=== PATIENT | male | born 1985 | race Caucasian/White ===

== ENCOUNTER → 2019-10-31 11:21 | Outpatient (CLI) | payer OTHER, SELFPAY ==
--- NOTE | 2019-10-31 11:27 | XR_ITS ---
PROCEDURE: XR CHEST 2V CLINICAL HISTORY: SOB Shortness of air, swelling in legs, current smoker COMPARISON: No exams were available for comparison FINDINGS: The cardiomediastinal silhouette and pulmonary vascularity are within normal limits. There is a 7 mm nodule in the right mid upper lung zone overlying the 2nd interspace anteriorly. The remaining lungs are clear. No lobar consolidation or collapse. No acute bony abnormalities. IMPRESSION: Indeterminate 7 mm nodule right upper lobe. Consider chest CT further evaluation in this patient with positive smoking history. Dictated by: Audi Orozco MD 10/31/2019 16:08 Electronically signed by Audi Orozco MD in [place] 10/31/2019 16:08
--- NOTE | 2019-10-31 11:27 | XR_ITS ---
PROCEDURE: XR THORACIC SPINE 3V CLINICAL INDICATION: THORACIC PAIN COMPARISON: No exams were available for comparison FINDINGS: There is minimal upper thoracic curvature convex right. No acute fracture or dislocation. There are mild degenerative changes of the thoracic spine IMPRESSION: No acute findings. Dictated by: Audi Orozco MD 10/31/2019 16:06 Electronically signed by Audi Orozco MD in [place] 10/31/2019 16:06
== END ==
PROVIDERS: PCP Nurse Practitioner Family; Visit Provider Nurse Practitioner Family
DX: M54.6 Pain in thoracic spine (principal); R06.02 Shortness of breath; Z72.0 Tobacco use
CPT/HCPCS: 71046; 72072

== ENCOUNTER → 2020-12-18 15:09 | Outpatient (CLI) | payer OTHER, SELFPAY ==
[2020-12-20 09:57] LABS: Covid-19 Nasal PCR Sendout P&C POSITIVE
== END ==
PROVIDERS: PCP Internal Medicine Adolescent Medicine; Visit Provider Family Medicine
DX: U07.1 COVID-19 (principal)
CPT/HCPCS: U0004

== ENCOUNTER 2021-07-20 17:49 | Emergency (ER) | payer OTHER, SELFPAY ==
[2021-07-20 17:51] VITALS: BP 197/98; PULSE 76; RESP 19; TEMP 36.6; O2SAT 96; BMI 36.6
--- NOTE | 2021-07-20 18:00 | ECG_ITS ---
APPROVED REPORT Exam: Resting ECG HR:76 bpm ECG Measurements Heart Rate 76 AXES DE 182 P 38 QRSd 68 QRS 25 QT 352 T 39 QTc 396 Conclusion Normal sinus rhythm Normal ECG Electronically signed by : Doc Rodriguez MD 07/21/2021 18:01:44
--- NOTE | 2021-07-20 18:09 | XR_ITS ---
PROCEDURE INFORMATION: Exam: XR Chest Exam date and time: 07/20/2021 6:09 PM Age: 36 years old Clinical indication: Chest pressure; Patient HX: Chest pain and cough TECHNIQUE: Imaging protocol: XR of the chest. Views: 1 view. COMPARISON: CR XR CHEST 2V 01/01/2020 6:06 PM FINDINGS: Airway: Patent Lungs: There are multiple punctate pulmonary parenchymal calcifications, consistent with remote granulomatous organism exposure. Low lung volumes causes crowding of the bronchovascular structures. No acute interstitial or airspace disease. Pleural spaces: Unremarkable. No pleural effusion. No pneumothorax. Heart/Mediastinum: Unremarkable. No cardiomegaly. Bones/joints: No acute skeletal abnormality or aggressive osseous lesion. IMPRESSION: Negative for acute thoracic pathology.
--- NOTE | 2021-07-20 19:15 | HMH.EDGENADL ---
ED Disposition Condition on Discharge: Good - Critical Care Critical Care Time: No <DerikIldefonso - Last Filed: 07/20/21 19:51> <Iraj Oliver - Last Filed: 07/20/21 20:51> Clinical Impression: Nonspecific chest pain Disposition: Home, Self-Care Instructions: DI for Chest Pain Additional Instructions: see pcp for follow up Referrals: Doc Rodriguez MD [Primary Care Provider] - Attestation: On 07/20/21, the high probability of a clinically significant, sudden or life threatening deterioration of the following system(s) required my full and direct attention, intervention and personal management. The time I documented below is in addition to time spent performing reported procedures but includes the following listed in this critical care notation. Medical Decision Making - Medical Records Medical records reviewed: Yes: I reviewed the patient's medical records. - Miguelito Inquiry Pt receiving controlled substance: No - ECG Data Tracing #1 I reviewed this ECG and interpreted as documented below: ECG initial impression date: 07/20/21 ECG initial impression time: 18:00 ECG normal with no acute: arrhythmias, ischemia, conduction abnormalities, chamber hypertrophy Normal Sinus Rhythm: Yes <Ildefonso More - Last Filed: 07/20/21 19:51> - Lab Data Result diagrams: 07/20/21 19:44 07/20/21 19:44 <Iraj Oliver - Last Filed: 07/20/21 20:51> Vital Signs: 07/20/21 17:51 Temperature 97.9 F Temperature Source Oral Pulse Rate [Left Radial] 76 Respiratory Rate 19 Blood Pressure [Right Arm] 197/98 H Blood Pressure Mean [Right Arm] 131 Blood Pressure Source [Right Arm] Automatic Cuff Blood Pressure Position [Right Arm] Sitting 02 Sat by Pulse Oximetry 96 Oxygen Delivery Method Room Air - Lab Data Lab Results 07/20/21 19:44: WBC 8.6, RBC 5.58, Hgb 15.8, Hct 46.1, MCV 82.5, MCH 28.3, MCHC 34.2, RDW 13.4, Plt Count 239, MPV 8.9, Neut % (Auto) 64.1, Lymph % (Auto) 27.2, Smyth % (Auto) 5.2, Eos % (Auto) 1.9, Baso % (Auto) 1.6, Neut # (Auto) 5.5, Lymph # (Auto) 2.3, Smyth # (Auto) 0.4, Eos # (Auto) 0.2, Baso # (Auto) 0.1 07/20/21 19:44: Sodium 141, Potassium 4.0, Chloride 105, Carbon Dioxide 27, Anion Gap 13.0, BUN 16, Creatinine 1.10, Estimated Creat Clear 170, Estimated GFR 76, Est GFR ( Amer) 92, Glucose 107 H, Calcium 9.0, Total Bilirubin 0.3, AST 36, ALT 46, Alkaline Phosphatase 84, Troponin I < 0.01, NT-Pro-B Natriuret Pep 18.8, Total Protein 7.8, Albumin 4.2, Globulin 3.6 H, Albumin/Globulin Ratio 1.2 Orders (Tests/Meds): ORDERS Category Date Time Status Troponin I Q3H Lab 07/20/21 22:44 Ordered Troponin I Q3H Lab 07/21/21 00:15 Ordered Medical Decision Narrative: This is a 36-year-old male presenting with some left arm pain and nonspecific chest discomfort. Patient low risk for acute coronary syndrome based on heart score. PERC negative. Work-up initiated. (Ildefonso More) General Adult HPI - General Mode of Arrival: Ambulatory Limitations: No Limitations Description of Symptoms (Recalled from ER Triage Doc. by RN): c/o chest discomfort and left arm/elbow pain going into his back and soa <Ildefonso More - Last Filed: 07/20/21 19:51> - General Source of Information: Patient, Medical Record <Iraj Oliver - Last Filed: 07/20/21 20:51> - General Chief complaint: PAIN Stated complaint: tightness in chest, pain in back and L arm Time Seen by Provider: 07/20/21 17:55 - History of Present Illness HPI narrative: Is a 36-year-old male presented to the emergency department with chest discomfort. Patient has had it since he woke up this morning. States that initially started as some discomfort in his left elbow. Is dull in nature. He states that is worse when he was trying to move it. He states that it was moving up into his left shoulder and left chest. Been consistent since this morning. Seems to be made worse by movement. He has had some mi
[2021-07-20 19:54] LABS: Basophils # 0.1 K/mm3 (0-0.2); Basophils % 1.6 % (0.1-2.0); Eosinophils # 0.2 K/mm3 (0.0-0.4); Eosinophils % 1.9 % (0.1-12.0); Hematocrit 46.1 % (42.0-52.0); Hemoglobin 15.8 g/dL (14.1-18.0); Lymphocytes # 2.3 K/mm3 (0.7-4.5); Lymphocytes % 27.2 % (10-50); Mean Corpuscular HGB Conc 34.2 g/dL (31.8-35.4); Mean Corpuscular Hemoglobin 28.3 pg (27.0-31.2); Mean Corpuscular Volume 82.5 fl (80-94); Mean Platelet Volume 8.9 fl (7.4-10.4); Monocytes # 0.4 K/mm3 (0.1-1.0); Monocytes % 5.2 % (1.7-9.3); Neutrophils # 5.5 K/mm3 (1.8-7.8); Neutrophils % 64.1 % (37.0-80.0); Platelet Count 239 K/mm3 (142-424); Red Blood Count 5.58 M/mm3 (4.60-6.20); Red Cell Distribution Width 13.4 % (11.5-17.5); White Blood Count 8.6 K/mm3 (4.8-10.8)
[2021-07-20 19:56] LABS: Chloride 105 mmol/L (98-107)
[2021-07-20 19:57] LABS: Sodium 141 mmol/L (136-145)
[2021-07-20 19:59] LABS: Alanine Aminotransferase 46 U/L (12-78); Alkaline Phosphatase 84 U/L (38-126); Aspartate Amino Transferase 36 U/L (17-59); Bilirubin,Total 0.3 mg/dl (0.2-1.3); Blood Urea Nitrogen 16 mg/dl (9-20); Creatinine Clearance Estimated 170 mL/min (50-200); Estimated Glomerular Filt Rate 76 ml/min (>60); GFR (African American) 92 ML/MIN (>60)
[2021-07-20 20:00] LABS: Albumin Level 4.2 g/dl (3.5-5.0); Albumin/Globulin Ratio 1.2 (1.1-1.8); Carbon Dioxide 27 mmol/L (22.0-30.0); Globulin 3.6 g/dL (1.3-3.2); Glucose 107 mg/dl (74-100); Total Protein,Serum 7.8 g/dl (6.3-8.2)
[2021-07-20 20:09] LABS: NT Pro Brain Natriuretic Pep. 18.8 pg/mL (0-125)
[2021-07-20 20:20] LABS: Troponin I < 0.01 ng/ml (0.00-0.034)
[2021-07-20 20:54] VITALS: BP 178/88; PULSE 74; RESP 16; TEMP 36.6; O2SAT 98
== END 2021-07-20 20:55 | disposition home or self-care (01) ==
PROVIDERS: Emergency Provider Emergency Medicine; PCP Internal Medicine Adolescent Medicine
DX: R07.89 Other chest pain (principal); M79.622 Pain in left upper arm; F17.290 Nicotine dependence, other tobacco product, uncomplicated
CPT/HCPCS: 71045; 80053; 83880; 84484; 85025; 93005; 99283

== ENCOUNTER 2022-02-23 17:57 | Emergency (ER) | payer OTHER, SELFPAY ==
[2022-02-23 20:55] VITALS: BP 0/0; PULSE 0; RESP 0; TEMP -17.7; TEMP 0
== END 2022-02-23 20:56 | disposition left against medical advice (07) ==
LOC: UTC 18:01
PROVIDERS: Emergency Provider Nurse Practitioner
DX: R50.9 Fever, unspecified (principal); R09.89 Other specified symptoms and signs involving the circulatory and respiratory systems; M79.10 Myalgia, unspecified site; Z53.21 Procedure and treatment not carried out due to patient leaving prior to being seen by health care provider; Z79.51 Long term (current) use of inhaled steroids; Z79.899 Other long term (current) drug therapy; Z88.0 Allergy status to penicillin; Z88.1 Allergy status to other antibiotic agents; Z88.3 Allergy status to other anti-infective agents

== ENCOUNTER 2022-09-14 14:41 | Emergency (ER) | payer OTHER, SELFPAY ==
--- NOTE | 2022-09-14 14:43 | EXP.UTC ---
Discharge Plan Disposition Patient Disposition: Home, Self-Care Condition: Good Prescriptions Prescriptions: New benzonatate [benzonatate] 100 mg capsule 100 mg PO TIDP PRN (Reason: Cough) Qty: 30 0RF prednisone 10 mg tablet 10 mg PO BID 3 Days Qty: 6 0RF amoxicillin [amoxicillin] 500 mg tablet 500 mg PO TID 10 Days Qty: 30 0RF No Action levofloxacin 750 MG tablet 750 mg PO DAILY Qty: 5 0RF albuterol sulfate 18 GM HFA aerosol inhaler 1 - 2 puffs IH Q4-6H PRN (Reason: Shortness Of Breath Or Wheezing) Qty: 1 0RF Referrals Follow up/Referrals: Provider,Referral, MD [Primary Care Provider] - See instructions Activity Restrictions/Add. Instructions Additional Instructions/Restrictions: Drink plenty of fluids. Take tylenol or ibuprofen for pain or fever. Take the medications as directed. Follow up with your regular doctor. GO TO THE ER FOR ANY WORSENING SYMPTOMS Quarantine until you know the results of your covid-19 test. Notify your school or workplace of your results and follow their instructions regarding return to work/school. Clinical Impressions Clinical Impression: Viral syndrome, Pharyngitis Stand Alone Forms Stand Alone Forms: Work/School Release Instructions Patient Instructions: DI for Pharyngitis/Tonsillopharyngitis -- Adult, Preventing the Spread of Coronavirus Discharge Instructions Discharge ED Provider: Jay Simmons [facility] General Stated complaint: headache,body aches,sore throat Time Seen by Provider: 09/14/22 14:43 History of Present Illness Provider Complaint: He states that since last night, he has had worsening body aches, chills, low grade fever and malaise. Related Data Previous Rx's Medication Instructions Recorded albuterol sulfate 90 mcg/actuation 1 - 2 puffs IH Q4-6H PRN Shortness 01/01/20 aerosol inhaler Of Breath Or Wheezing #1 inh levofloxacin 750 mg tablet 750 mg PO DAILY #5 tabs 01/01/20 amoxicillin 500 mg tablet 500 mg PO TID 10 days #30 tabs 09/14/22 benzonatate 100 mg capsule 100 mg PO TIDP PRN Cough #30 caps 09/14/22 prednisone 10 mg tablet 10 mg PO BID 3 days #6 tabs 09/14/22 Allergies Allergy/AdvReac Type Severity Reaction Status Date / Time Erythromycin Allergy Mild UNKNOWN Uncoded 12/03/17 18:10 [facility] Social History Smoking Status: Never smoker alcohol intake: never current occupational status: other Travel in the last 8 weeks: None ROS Obtained: Yes All systems reviewed & no additional complaints except as documented Constitutional Constitutional: Reports chills and Reports fever(s) Eyes Eyes: Denies eye discharge ENT Ears, Nose, Mouth, and Throat: Reports as per HPI Cardiovascular Cardiovascular: Denies chest pain Respiratory Respiratory: Denies chest congestion and Reports cough Gastrointestinal Gastrointestingal: Reports nausea; Denies abdominal pain, constipation, cramping, diarrhea or vomiting Musculoskeletal Musculoskeletal: Denies arthralgias Integumentary/Breasts Skin/Breast: Denies rash Neurologic Neurologic: Denies paresthesias Physical Exam General General appearance: alert and in no apparent distress Head Head exam: atraumatic, normocephalic and normal inspection Eye Eye exam: Present normal appearance, PERRL and EOMI ENT ENT exam: Present mucous membranes moist and normal external ear exam Expanded ENT Exam TM/Canal exam: Bilateral TM: erythema and bulging Nose exam: Absent sinus tenderness Mouth exam: Present normal external inspection; Absent drooling Teeth exam: Present normal inspection Throat exam: Present tonsillar erythema, tonsillomegaly and tonsillar exudate Neck Neck exam: Present normal inspection, full ROM and trachea midline; Absent tenderness, meningismus or lymphadenopathy Chest Chest inspection: Present normal inspection and symmetric chest wall rise; Absent tenderness Respiratory Respiratory exam
[2022-09-14 14:58] VITALS: BP 145/86; PULSE 90; RESP 17; TEMP 36.8; O2SAT 98; BMI 34.7
[2022-09-14 15:46] VITALS: BP 145/86; PULSE 90; RESP 16; TEMP 36.8
== END 2022-09-14 15:46 | disposition home or self-care (01) ==
PROVIDERS: Emergency Provider Nurse Practitioner Family
DX: J02.9 Acute pharyngitis, unspecified (principal); B34.9 Viral infection, unspecified
CPT/HCPCS: 99212; C9803; G0463; U0003; U0005

== ENCOUNTER 2023-06-03 15:28 | Emergency (ER) | payer OTHER, SELFPAY ==
[2023-06-03 15:28] VITALS: BP 176/91; PULSE 74; RESP 20; TEMP 36.6; O2SAT 100; BMI 35.3
--- NOTE | 2023-06-03 15:48 | EXP.UTC ---
Discharge Plan Disposition Patient Disposition: Home, Self-Care Condition: Good Prescriptions Prescriptions: New benzonatate [benzonatate] 100 mg capsule 100 mg PO TIDP PRN (Reason: Cough) Qty: 30 0RF methylprednisolone 4 mg Tablets,Dose Pack 4 mg PO DIRECTED Qty: 21 0RF amoxicillin-pot clavulanate 875-125 mg Tablet 1 tab PO Q12H Qty: 20 0RF No Action levofloxacin 750 MG tablet 750 mg PO DAILY Qty: 5 0RF albuterol sulfate 18 GM HFA aerosol inhaler 1 - 2 puffs IH Q4-6H PRN (Reason: Shortness Of Breath Or Wheezing) Qty: 1 0RF benzonatate [benzonatate] 100 mg capsule 100 mg PO TIDP PRN (Reason: Cough) Qty: 30 0RF prednisone 10 mg tablet 10 mg PO BID 3 Days Qty: 6 0RF amoxicillin [amoxicillin] 500 mg tablet 500 mg PO TID 10 Days Qty: 30 0RF Referrals Follow up/Referrals: Provider,Referral, MD [Primary Care Provider] - See instructions Activity Restrictions/Add. Instructions Additional Instructions/Restrictions: Drink plenty of fluids. Take tylenol or ibuprofen for pain or fever. Take the medications as directed. Follow up with your regular doctor. GO TO THE ER FOR ANY WORSENING SYMPTOMS Clinical Impressions Clinical Impression: Sinusitis, Bronchitis Instructions Patient Instructions: DI for Sinusitis, DI for Acute Bronchitis Discharge ED Provider: Jay Simmons [facility] [place] General Stated complaint: congestion, sore throat, cough, h/a, body aches Mode of Arrival: Ambulatory Source of Information: Patient Limitations: No Limitations Time Seen by Provider: 06/03/23 15:48 Description of Symptoms (Recalled from Triage Doc. by RN): Patient reports congestion, headache, and body aches for 2 weeks. States he thinks he has an upper respiratory infection. HEENT Symptoms (Recalled from RN notes): Yes Resp Symptoms (Recalled from RN notes): No Skin Symptoms (Recalled from RN notes): No MS Symptoms (Recalled from RN notes): No Functional Status (Recalled from RN notes): wnl History of Present Illness Provider Complaint: He states that for the past 2 weeks he has had sinus congestion, scratchy sore throat, chest congestion and a productive cough. He denies any fever. Related Data Previous Rx's Medication Instructions Recorded albuterol sulfate 90 mcg/actuation 1 - 2 puffs IH Q4-6H PRN Shortness 01/01/20 aerosol inhaler Of Breath Or Wheezing #1 inh levofloxacin 750 mg tablet 750 mg PO DAILY #5 tabs 01/01/20 amoxicillin 500 mg tablet 500 mg PO TID 10 days #30 tabs 09/14/22 benzonatate 100 mg capsule 100 mg PO TIDP PRN Cough #30 caps 09/14/22 prednisone 10 mg tablet 10 mg PO BID 3 days #6 tabs 09/14/22 amoxicillin 875 mg-potassium 1 tab PO Q12H #20 tabs 06/03/23 clavulanate 125 mg tablet benzonatate 100 mg capsule 100 mg PO TIDP PRN Cough #30 caps 06/03/23 methylprednisolone 4 mg tablets in 4 mg PO DIRECTED #21 tabs 06/03/23 a dose pack Allergies Allergy/AdvReac Type Severity Reaction Status Date / Time Erythromycin Allergy Mild UNKNOWN Uncoded 12/03/17 18:10 Worker's Comp Is this a Worker's Comp case?: No [facility] Disclaimer: The information contained in this section may have been updated after the patient was seen, as this information can be updated by other users. Social History Smoking Status: Never smoker alcohol intake: never current occupational status: other Travel in the last 8 weeks: None ROS Obtained: Yes All systems reviewed & no additional complaints except as documented Constitutional Constitutional: Reports chills and Reports fever(s) Eyes Eyes: Denies eye discharge ENT Ears, Nose, Mouth, and Throat: Reports as per HPI Cardiovascular Cardiovascular: Denies chest pain Respiratory Respiratory: Denies chest congestion and Reports cough Gastrointestinal Gastrointestingal: Reports nausea; Denies abdominal pain, constipation, cramping, diarrhea or vomiting Musculoskele
[2023-06-03 16:08] VITALS: BP 176/91; PULSE 74; RESP 20; TEMP 36.6; O2SAT 100
== END 2023-06-03 16:09 | disposition home or self-care (01) ==
PROVIDERS: Emergency Provider Nurse Practitioner Family
DX: J01.90 Acute sinusitis, unspecified (principal); J20.9 Acute bronchitis, unspecified
CPT/HCPCS: 99212; 99214; G0463

== ENCOUNTER → 2023-09-09 15:28 | Outpatient (CLI) | payer OTHER, SELFPAY ==
--- NOTE | 2023-09-09 15:37 | XR_ITS ---
FINAL REPORT CLINICAL HISTORY: SCIATICA COMPARISON: None FINDINGS: 5 views of the lumbar spine were obtained. There is no evidence of fracture or dislocation. The vertebral alignment is normal. Mild degenerative changes present with small osteophytes. No paraspinous soft tissue abnormalities identified. IMPRESSION: No acute bony abnormality. Reviewed, Interpreted and Dictated by Jared Norris III, MD Transcribed by Yris Shultz Authenticated and [facility]
== END ==
PROVIDERS: PCP Nurse Practitioner Family; Visit Provider Nurse Practitioner Family
DX: M54.41 Lumbago with sciatica, right side (principal)
CPT/HCPCS: 72110

== ENCOUNTER → 2023-09-28 09:51 | Outpatient (CLI) | payer OTHER, SELFPAY ==
--- NOTE | 2023-09-28 10:20 | CT_ITS ---
FINAL REPORT TECHNIQUE: Before and after the administration of intravenous contrast, axial images through the chest were performed by computed tomography. This study was performed with techniques to keep radiation doses as low as reasonably achievable, (ALARA). Individualized dose reduction techniques using automated exposure control or adjustment of mA and/or kV according to the patient's size were employed. CLINICAL HISTORY: LUNG NODULE COMPARISON: None FINDINGS: CT CHEST WITH AND WITHOUT CONTRAST: Small mediastinal and hilar nodes are noted, nonspecific. No axillary adenopathy is identified. No pleural or pericardial effusions are present. Multiple calcified granulomas are noted in the right lung. There is lingular atelectasis or scarring present. There is a 5 mm noncalcified nodule in the right lower lobe, seen best on image #47. No other masses or nodules are identified. In the abdomen, there is mild fatty infiltration of the liver. IMPRESSION: 5 mm right lower lobe noncalcified nodule as described. If indicated, recommend 12-month follow-up CT for comparison. Fatty infiltration of the liver. Reviewed, Interpreted and Dictated by Jared Norris III, MD Transcribed by Yris Shultz Authenticated and [facility]
[2023-09-28 10:23] LABS: Blood Urea Nitrogen 15 mg/dl (9-20); Estimated Glomerular Filt Rate 84 ml/min (>60); GFR (African American) 101 ML/MIN (>60)
== END ==
PROVIDERS: PCP Nurse Practitioner Family; Visit Provider Nurse Practitioner Family
DX: R91.1 Solitary pulmonary nodule (principal); Z87.891 Personal history of nicotine dependence
CPT/HCPCS: 36415; 71270; 82565; 84520; Q9967

== ENCOUNTER 2023-10-02 10:53 | Emergency (ER) | payer OTHER, SELFPAY ==
[2023-10-02 10:53] VITALS: BP 125/88; PULSE 98; RESP 18; TEMP 36.8; O2SAT 97; BMI 35.9
--- NOTE | 2023-10-02 11:27 | EXP.UTC ---
Discharge Plan Disposition Patient Disposition: Home, Self-Care Condition: Good Prescriptions Prescriptions: New prednisone [prednisone] 20 mg tablet 20 mg PO BID Qty: 10 0RF amoxicillin [amoxicillin] 500 mg tablet 500 mg PO BID 10 Days Qty: 20 0RF No Action lisinopril 10 mg tablet 10 mg PO DAILY Referrals Follow up/Referrals: Mateus Camarillo MD [Primary Care Provider] - See instructions Activity Restrictions/Add. Instructions Additional Instructions/Restrictions: Start antibiotic today. Be sure to complete entire prescription even if feeling better Tylenol and ibuprofen as needed for pain or fever Humidifier/vaporizer/hot steamy shower Follow-up with primary care tomorrow. Follow-up immediately in the ER of the [facility] for new or worsening symptoms or no noticeable improvement over the next 48-72 hours. Stop smoking Start steroids today. Helps with inflammation therefore coughing and wheezing. Follow directions on package. Clinical Impressions Clinical Impression: Bronchitis Instructions Patient Instructions: Acute Bronchitis Discharge ED Provider: Clara ([facility])Ludmila [facility] [place] HPI General Stated complaint: cough, congestion, runny nose Mode of Arrival: Ambulatory Source of Information: Patient Limitations: No Limitations Time Seen by Provider: 10/02/23 11:27 Description of Symptoms (Recalled from Triage Doc. by RN): congestion, and cough HEENT Symptoms (Recalled from RN notes): Yes Resp Symptoms (Recalled from RN notes): No Skin Symptoms (Recalled from RN notes): No MS Symptoms (Recalled from RN notes): No Functional Status (Recalled from RN notes): n/a History of Present Illness Provider Complaint: 38 yr old male presents for congestion and coughing up green sputum for 3weeks. pt states the cough is becoming worse and now its green. Related Data Home Medications Medication Instructions Recorded Confirmed lisinopril 10 mg tablet 10 mg PO DAILY 10/02/23 10/02/23 Previous Rx's Medication Instructions Recorded amoxicillin 500 mg tablet 500 mg PO BID 10 days #20 tabs 10/02/23 prednisone 20 mg tablet 20 mg PO BID #10 tabs 10/02/23 Allergies Allergy/AdvReac Type Severity Reaction Status Date / Time azithromycin Allergy Verified 10/02/23 11:20 Erythromycin Allergy Mild UNKNOWN Uncoded 10/02/23 11:20 Worker's Comp Is this a Worker's Comp case?: No [facility] Disclaimer: The information contained in this section may have been updated after the patient was seen, as this information can be updated by other users. Medical History , [employer]) Hypertension Social History , [employer]) Smoking Status: Never smoker alcohol intake: never current occupational status: other Travel in the last 8 weeks: None ROS Obtained: Yes All systems reviewed & no additional complaints except as documented Constitutional Constitutional: Reports system reviewed and no additional complaints, except as documented and Reports as per HPI Eyes Eyes: Reports system reviewed and no additional complaints, except as documented ENT Ears, Nose, Mouth, and Throat: Reports system reviewed and no additional complaints, except as documented, Reports as per HPI and Reports nasal congestion Cardiovascular Cardiovascular: Reports system reviewed and no additional complaints, except as documented Respiratory Respiratory: Reports system reviewed and no additional complaints, except as documented, Reports as per HPI, Reports change in phlegm color, Reports chest congestion and Reports cough Gastrointestinal Gastrointestingal: Reports system reviewed and no additional complaints, except as documented Musculoskeletal Musculoskeletal: Reports system reviewed and no additional complaints, except as documented Integumentary/Breasts Skin/Breast: Reports system reviewed and no additional complaints, except as documented Neur
[2023-10-02 11:31] LABS: UTC Strep Screen (Rapid) Negative (Negative)
[2023-10-02 11:49] VITALS: BP 125/88; PULSE 98; RESP 18; TEMP 36.8; O2SAT 97
== END 2023-10-02 11:49 | disposition home or self-care (01) ==
PROVIDERS: Emergency Provider Nurse Practitioner Family; PCP Family Medicine
DX: J20.9 Acute bronchitis, unspecified (principal); I10 Essential (primary) hypertension
CPT/HCPCS: 87880; 99212; 99214; G0463

== ENCOUNTER → 2023-11-05 08:20 | Outpatient (CLI) | payer OTHER, SELFPAY ==
--- NOTE | 2023-11-05 08:29 | CT_ITS ---
FINAL REPORT TECHNIQUE: Axial CT images of the abdomen and pelvis were obtained before and after the administration of IV contrast. Oral contrast was administered.This study was performed with techniques to keep radiation doses as low as reasonably achievable (ALARA). Individualized dose reduction techniques using automated exposure control or adjustment of mA and/or kV according to the patient''s size were employed. CLINICAL HISTORY: BLOOD IN URINE FINDINGS: Abdomen: The lung bases are clear. The heart is normal in size. There are clusters of calcifications in the anterolateral liver, favor granulomas. The spleen is unremarkable. No adrenal masses present. The pancreas has an unremarkable appearance. The kidneys enhance normally. The aorta is normal in caliber. There is no free fluid or adenopathy. No mass or abnormal fluid collection is seen. Precontrast images demonstrate no evidence of nephrolithiasis. Pelvis: The appendix is normal. No ureteral stone is identified. The urinary bladder is unremarkable without evidence of a mass. No inflammatory process is seen. There is no evidence of mass or adenopathy. There is no evidence of bowel obstruction. IMPRESSION: No evidence of acute intra-abdominal process. Reviewed, Interpreted and Dictated by Jared Norris III, MD Transcribed by Yvette Sarah Authenticated and [facility]
== END ==
PROVIDERS: PCP Nurse Practitioner Family; Visit Provider Urology
DX: R31.9 Hematuria, unspecified (principal)
CPT/HCPCS: 74178; Q9967

== ENCOUNTER 2025-01-06 08:50 | Emergency (ER) | payer BC, SELFPAY ==
[2025-01-06 09:51] VITALS: BP 153/90; RESP 18; TEMP 36.7; O2SAT 96; BMI 37.8
--- NOTE | 2025-01-06 10:14 | EXP.UTC ---
Discharge Plan Disposition Patient Disposition: Home, Self-Care Condition: Good Prescriptions Prescriptions: No Action lisinopril 10 mg tablet 20 mg PO DAILY cephalexin 500 mg capsule 500 mg PO TID 7 Days Qty: 21 0RF Referrals Follow up/Referrals: Mateus Camarillo MD [Primary Care Provider] - See instructions Activity Restrictions/Add. Instructions Additional Instructions/Restrictions: No sign of a bacterial infection. Likely viral. Viruses can take 7-14 days to run their course. Nasal saline and bulb syringe or nose Jessica to remove nasal drainage to help with nasal congestion. Hard to eat, drink, sleep with nasal congestion so important to keep this cleaned out. Monitor temp. Tylenol or Motrin as needed for pain or fever Encourage fluids, water, Gatorade, Powerade, Pedialyte if /toddler/child Warm salt water gargles Warm fluids Sore throat lozenges Sleep elevated Humidifier/vaporizer Follow-up immediately for new or worsening symptoms or no noticeable improvement over the next 48-72 hours. coricidin P ot Follow-up with PCP regarding arm for more workup Clinical Impressions Clinical Impression: Upper respiratory infection, viral Instructions Patient Instructions: DI for Viral Upper Respiratory Infection -- Adult Print Language Print Language: Kazakh Discharge ED Provider: Clara ([facility])Ludmila [facility] [place] HPI General Stated complaint: cough sneezing headache Mode of Arrival: Ambulatory Source of Information: Patient Time Seen by Provider: 01/06/25 09:59 Description of Symptoms (Recalled from Triage Doc. by RN): COUGH AND CONGESTION X 1 DAY ARM PAIN X 3WEEKS HEENT Symptoms (Recalled from RN notes): No Resp Symptoms (Recalled from RN notes): Yes Skin Symptoms (Recalled from RN notes): No MS Symptoms (Recalled from RN notes): Yes Functional Status (Recalled from RN notes): WNL History of Present Illness Provider Complaint: 39-year-old male presents for complaints of coughing, congestion, sneezing, headache, this started last night. Patient is also complaining of left arm pain with numbness to the last 3 fingers for over 3 weeks. Patient states she has had a couple doctor appointments but has missed his appointments. Patient denies chest pain but does report heartburn that comes and goes after he eats a fatty or spicy meal. Patient states he does not want his arm worked up was just seeking information. Related Data Home Medications ?Medication ?Instructions ?Recorded ?Confirmed lisinopril 10 mg tablet 20 mg PO DAILY 10/27/23 07/30/24 Previous Rx's ?Medication ?Instructions ?Recorded cephalexin 500 mg capsule 500 mg PO TID 7 days #21 caps 07/30/24 Allergies Allergy/AdvReac Type Severity Reaction Status Date / Time azithromycin Allergy Verified 10/27/23 13:02 erythromycin base Allergy Verified 07/30/24 13:26 Worker's Comp Is this a Worker's Comp case?: No [facility] Disclaimer: The information contained in this section may have been updated after the patient was seen, as this information can be updated by other users. Medical History , DERMATOLOGIST AND DERMATOPATHOLOGIST) Hyperlipidemia Fibrosis of lung Tobacco abuse Dyspnea on exertion Multiple lung nodules on CT Hypertension Surgical History , DERMATOLOGIST AND DERMATOPATHOLOGIST) History of surgery on lower extremity Family History , DERMATOLOGIST AND DERMATOPATHOLOGIST) Heart attack Cancer Hypertension Social History , DERMATOLOGIST AND DERMATOPATHOLOGIST) Smoking Status: Current every day smoker tobacco type: smokeless tobacco alcohol intake: never current occupational status: other Travel in the last 8 weeks: None Have you lived/traveled outside [place] in past 30 days?: No Contact w/someone who lives/traveled outside [place] past 30 days?: No Exposure to someone with infectious disease in past 14 days?: No Do you have a fever (greater than 100.4 F or 38 C)?: No Have you tested positive for COVID-19: No Exposed to someone with COVID-19 in past 14 days?: No Do you have a sore throat?: No Do you have a cough?: Yes Do you have any weakness?: No Do you have any diarrhea?: No Are you experiencing any unusual bleeding?: No Do you have any muscle aches/pain?: No Do you have any abdominal pain?: No Are you experiencing loss of taste or smell?: No ROS Obtained: Yes Systems reviewed as appropriate & no additional complaints except as documented Physical Exam General General appearance: alert and in no apparent distress Eye Eye exam: Present normal appearance ENT ENT exam: Present normal exam, normal oropharynx, mucous membranes moist and TM's normal bilaterally Respiratory Respiratory exam: Present normal lung sounds bilaterally Cardiovascular Cardiovascular exam: Present regular rate and normal rhythm Extremities Exam Extremities exam: Present normal inspection, full ROM and normal capillary refill; Absent tenderness or joint swelling Neurological Exam Neurological exam: Present alert, oriented X3, CN II-XII intact and normal gait Skin Skin exam: Present warm and intact Lymphatic Lymphatic Findings: no adenopathy Medical Decision Making Medical Records Medical records reviewed: Yes I reviewed the patient's medical records. Screening: Per USPSTF and CDC recommendations, given the prevalence of disease in our region, it is our hospital?s policy to screen for HIV and viral Hepatitis for all patients aged 18 and over and those with ongoing risk factors. Miguelito Inquiry Pt receiving controlled substance: No Vital Signs: 01/06/25 09:51 Temperature 98.1 F Temperature Source Oral Respiratory Rate 18 Blood Pressure [Left Arm] 153/90 H Blood Pressure Mean [Left Arm] 111 02 Sat by Pulse Oximetry 96 Lab Data Lab results reviewed: Yes I reviewed the patient's lab results. Medical Decision Narrative: Patient declined to go to the ER to be evaluated
[2025-01-06 10:33] LABS: UTC Influenza A Antigen Negative (Negative); UTC Influenza B Antigen Negative (Negative)
[2025-01-06 10:55] VITALS: BP 153/90; PULSE 68; RESP 18; TEMP 36.7
== END 2025-01-06 11:00 | disposition home or self-care (01) ==
PROVIDERS: Emergency Provider Nurse Practitioner Family; PCP Family Medicine
DX: J06.9 Acute upper respiratory infection, unspecified (principal)
CPT/HCPCS: 87804; 99213; G0381